=== PATIENT | male | born 1945 | race Caucasian/White ===

== ENCOUNTER 2016-09-20 05:46 | Day surgery (SDC) | payer BC, MEDICARE ==
[2016-09-20] MEDS ORDERED: Versed 2 MG/2 ML Injection IV ONE (06:00)
[2016-09-20] MEDS ORDERED: DIPRIVAN 200 MG/20 ML IV ONE (06:00)
[2016-09-20] MEDS ORDERED: Lactated Ringers 1,000 ML IV ONE (06:26)
[2016-09-20] MEDS ORDERED: Lactated Ringers 1,000 ML IV SCH (06:30)
[2016-09-20 08:04] VITALS: PULSE 53; O2SAT 99
[2016-09-20 08:51] VITALS: BP 132/84
--- NOTE | 2016-09-20 09:56 | OP ---
SURGERY DATE/TIME: 09/20/2016 0700 PREOPERATIVE DIAGNOSIS: Screening colonoscopy. POSTOPERATIVE DIAGNOSIS: Normal colon. PROCEDURE: Colonoscopy. SURGEON: Jay Power M.D. ANESTHESIA: MAC by Jcarlos Nguyen CRNA. ESTIMATED BLOOD LOSS: None. SPECIMENS: None. DESCRIPTION OF PROCEDURE: After informed written consent was obtained, the patient was taken to the endoscopy suite. He underwent monitored anesthesia. Digital rectal exam showed normal sphincter tone and no internal lesions. The scope was inserted in the rectum and sequentially the entire colonic mucosa was traversed. The level of cecum was reached and verified with direct visualization of ileocecal valve. Upon withdrawal careful mucosal inspection revealed no gross abnormalities. Prep was noted to be good. Prior to withdrawal retroflexion was performed which showed no internal lesions. The scope was removed and the patient was transferred to the recovery room in excellent condition.
== END 2016-09-20 08:45 | disposition home or self-care (01) ==
LOC: SDC 05:46
PROVIDERS: ATTEND Family Medicine
PROC: 0DJD8ZZ Inspection of Lower Intestinal Tract, Via Natural or Artificial Opening Endoscopic (ICD-10-PCS; principal; 2016-09-20)
DX: Z12.11 Encounter for screening for malignant neoplasm of colon (principal)
CPT/HCPCS: 00810; 99100; J2250; J2704